=== PATIENT | male | born 1950 | race Caucasian/White ===

== ENCOUNTER 2021-07-09 11:54 | Inpatient (IN) ==
[2021-07-09] MEDS ORDERED: POTASSIUM CHLORIDE RIDER 10 MEQ/100 ML PREMIX IV PRN (12:20)
[2021-07-09] MEDS ORDERED: diphenhydrAMINE CAP 50 MG CAPSULE PO ONE (12:20)
[2021-07-09] MEDS ORDERED: DIAZEPAM 5 MG TABLET PO ONE (12:20)
[2021-07-09] MEDS ORDERED: ASPIRIN 325 MG TABLET PO ONE (12:20)
[2021-07-09] MEDS ORDERED: MAGNESIUM SULF RIDER 2 GM/50 ML PREMIX IV PRN (12:20)
[2021-07-09 12:32] LABS: Basophils % 0.7 % (0.0-0.8); Eosinophils # 0.3 10*3/uL (0.0-0.87); Eosinophils % 4.9 % (0.00-10.9); Hematocrit 41.2 VOL% (42.0-52.0); Immature Granulocytes % 0.3 %; Immature Granulocytes Absolute 0.02 #; Lymphocytes # 1.2 10*3/uL (1.4-4.0); Lymphocytes % 21.3 % (21.2-54.2); Mean Corpuscular Volume 94.3 FL (87-102); Mean Platelet Volume 9.6 FL (9.6-12.0); Monocytes % 7.8 % (1.7-12.7); Platelet Count 158 T/CUMM (130-400); Red Blood Count 4.37 MC/CUMM (3.8-5.5); Red Cell Distribution Width 13.5 % (9.3-17.3); White Blood Count 5.8 T/CUMM (4-12)
[2021-07-09 12:42] LABS: PT Patient Result 10.9 SECS (10.5-12.0)
[2021-07-09 12:56] LABS: Calcium 8.8 MG/DL (8.5-10.1); Osmolality,Calculated 277.7 MOS/KG (273-304); Potassium 3.5 MMOL/L (3.5-5.1)
[2021-07-09] MEDS ORDERED: HEPARIN/NACL 0.9% 2 UNITS/ML 2,000 UNIT/1,000 ML BAG IV ONE (13:02)
[2021-07-09] MEDS ORDERED: MAGNESIUM SULF RIDER 2 GM/50 ML PREMIX IV ONE (13:03)
[2021-07-09] MEDS ORDERED: DIAZEPAM 5 MG TABLET ONE (13:03)
[2021-07-09] MEDS ORDERED: ASPIRIN 325 MG TABLET ONE (13:03)
[2021-07-09] MEDS ORDERED: diphenhydrAMINE CAP 50 MG CAPSULE ONE (13:03)
[2021-07-09] MEDS: SODIUM CHLORIDE 0.9% 1,000 ML IV SCH (13:05)
[2021-07-09] MEDS ORDERED: fentaNYL 100 MCG/2 ML VIAL ONE (13:23)
[2021-07-09] MEDS ORDERED: MIDAZOLAM 2 MG/2 ML VIAL ONE (13:23)
[2021-07-09] MEDS ORDERED: LIDOCAINE 1% 20 ML VIAL ONE (13:26)
[2021-07-09] MEDS ORDERED: NITROGLYCERIN DRIP 50 MG/250 ML BOTTLE IV ONE (13:53)
[2021-07-09] MEDS ORDERED: GLUCAGON 1 MG VIAL IM PRN (14:26)
[2021-07-09] MEDS ORDERED: DEXTROSE 50% 25 GM/50 ML VIAL IV PRN (14:26)
[2021-07-09] MEDS ORDERED: ACETAMINOPHEN 325 MG TABLET PO PRN (14:29)
[2021-07-09] MEDS ORDERED: MORPHINE 2 MG/1 ML SYRINGE IV PRN (14:29)
[2021-07-09] MEDS ORDERED: ONDANSETRON 4 MG/2 ML VIAL IV PRN (14:29)
[2021-07-09] MEDS ORDERED: ZALEPLON 5 MG CAPSULE PO PRN (14:29)
[2021-07-09] MEDS ORDERED: ACETAMINOPHEN/CODEINE 300-30 MG TABLET PO PRN (14:29)
[2021-07-09] MEDS: INSULIN REGULAR 100 UNIT/ML SUBCUT SCH (15:42)
[2021-07-09] MEDS: PANTOPRAZOLE 40 MG TABLET PO SCH (21:40)
[2021-07-09] MEDS: OMEGA 3 ACID ETHYL ESTERS 1 GM CAPSULE PO SCH (21:40)
[2021-07-09] MEDS: MELOXICAM 7.5 MG TABLET PO SCH (21:40)
[2021-07-09] MEDS: NEBIVOLOL 5 MG TABLET PO SCH (21:40)
[2021-07-09] MEDS: EZETIMIBE 10 MG TABLET PO SCH (21:41)
[2021-07-09] MEDS: CHOLECALCIFEROL 1,000 UNIT TABLET PO SCH (21:41)
[2021-07-09] MEDS: ZINC GLUCONATE 50 MG TABLET PO SCH (21:42)
[2021-07-10] MEDS: diphenhydrAMINE 25 MG/10 ML UDCUP PO SCH ×2 (00:05→21:52)
[2021-07-10 05:10] LABS: Basophils % 0.5 % (0.0-0.8); Eosinophils # 0.2 10*3/uL (0.0-0.87); Hematocrit 38.7 VOL% (42.0-52.0); Hemoglobin 13.1 GM/DL (14.0-18.0); Immature Granulocytes % 0.7 %; Immature Granulocytes Absolute 0.04 #; Lymphocytes % 17.7 % (21.2-54.2); Mean Corpuscular HGB Conc 33.9 GM/DL (32-36); Mean Corpuscular Volume 94.4 FL (87-102); Mean Platelet Volume 9.7 FL (9.6-12.0); Monocytes % 9.5 % (1.7-12.7); Neutrophils % 67.6 % (38.7-73.9); Platelet Count 141 T/CUMM (130-400); Red Cell Distribution Width 13.4 % (9.3-17.3); White Blood Count 5.7 T/CUMM (4-12)
[2021-07-10 05:52] LABS: Calcium 8.3 MG/DL (8.5-10.1); Osmolality,Calculated 282.7 MOS/KG (273-304); Potassium 3.3 MMOL/L (3.5-5.1); Risk Ratio 7.77; VLDL Cholesterol 84.8 MG/DL
[2021-07-10] MEDS: SODIUM CHLORIDE 0.9% 1,000 ML IV SCH ×3 (06:10→18:09)
[2021-07-10] MEDS ORDERED: CYANOCOBALAMIN 5000 MCG PO SCH (09:00)
[2021-07-10] MEDS ORDERED: ENOXAPARIN 40 MG/0.4 ML SYRINGE SUBCUT SCH (09:00)
[2021-07-10] MEDS: INSULIN REGULAR 100 UNIT/ML SUBCUT SCH ×2 (09:14→16:30)
[2021-07-10] MEDS: OMEGA 3 ACID ETHYL ESTERS 1 GM CAPSULE PO SCH ×2 (09:21→21:53)
[2021-07-10] MEDS: hydroCHLOROthiazide 25 MG TABLET PO SCH (09:21)
[2021-07-10] MEDS: OLMESARTAN 20 MG TABLET PO SCH (09:21)
[2021-07-10] MEDS: amLODIPine 2.5 MG TABLET PO SCH (09:21)
[2021-07-10] MEDS: ASPIRIN EC 81 MG TABLET PO SCH (09:21)
[2021-07-10] MEDS: FUROSEMIDE 20 MG TABLET PO SCH (09:22)
[2021-07-10] MEDS: LEVOTHYROXINE 137 MCG TABLET PO SCH (09:22)
[2021-07-10] MEDS: CHOLECALCIFEROL 1,000 UNIT TABLET PO SCH ×2 (09:22→21:53)
[2021-07-10] MEDS ORDERED: POTASSIUM CHLORIDE 20 MEQ TABLET PO ONE (09:56)
[2021-07-10] MEDS ORDERED: CLORAZEPATE 3.75 MG TABLET PO PRN (11:10)
[2021-07-10] MEDS: NITROGLYCERIN 2% OINT 1 INCH/GM PACK TOP SCH ×2 (11:36→18:09)
[2021-07-10] MEDS: NEBIVOLOL 5 MG TABLET PO SCH (21:52)
[2021-07-10] MEDS: MELOXICAM 7.5 MG TABLET PO SCH (21:52)
[2021-07-10] MEDS: PANTOPRAZOLE 40 MG TABLET PO SCH (21:53)
[2021-07-10] MEDS: ZINC GLUCONATE 50 MG TABLET PO SCH (21:53)
[2021-07-10] MEDS: EZETIMIBE 10 MG TABLET PO SCH (21:53)
[2021-07-11] MEDS: NITROGLYCERIN 2% OINT 1 INCH/GM PACK TOP SCH ×5 (00:23→23:28)
[2021-07-11 04:24] LABS: ABG Base Excess 2.8 MMOL/L (-2.5-2.5); ABG HCO3 26.3 MMOL/L (20-26); ABG PCO2 46.5 MM HG (35-48); ABG PH 7.394 (7.35-7.45); ABG TCO2 25.1 MMOL/L (23-27)
[2021-07-11 04:42] LABS: ABG PO2 36.5 MM HG (80-95)
[2021-07-11 05:18] LABS: ABG Base Excess 1.7 MMOL/L (-2.5-2.5); ABG HCO3 25.9 MMOL/L (20-26); ABG Oxygen Saturation 95.8 % (95-100); ABG PCO2 39.7 MM HG (35-48); ABG PH 7.426 (7.35-7.45); ABG PO2 74.4 MM HG (80-95); ABG TCO2 22.8 MMOL/L (23-27)
[2021-07-11 05:21] LABS: Basophils % 0.5 % (0.0-0.8); Eosinophils # 0.2 10*3/uL (0.0-0.87); Eosinophils % 3.6 % (0.00-10.9); Hematocrit 37.4 VOL% (42.0-52.0); Hemoglobin 12.9 GM/DL (14.0-18.0); Immature Granulocytes % 0.5 %; Immature Granulocytes Absolute 0.03 #; Lymphocytes # 1.2 10*3/uL (1.4-4.0); Lymphocytes % 17.6 % (21.2-54.2); Mean Corpuscular HGB Conc 34.5 GM/DL (32-36); Mean Corpuscular Volume 94.7 FL (87-102); Monocytes % 9.1 % (1.7-12.7); Neutrophils % 68.7 % (38.7-73.9); Platelet Count 147 T/CUMM (130-400); Red Blood Count 3.95 MC/CUMM (3.8-5.5); Red Cell Distribution Width 13.5 % (9.3-17.3); White Blood Count 6.6 T/CUMM (4-12)
[2021-07-11 06:05] LABS: Albumin 3.3 G/DL (3.4-5.0); Bilirubin,Total 0.5 MG/DL (0.20-1.00); Calcium 8.4 MG/DL (8.5-10.1); Osmolality,Calculated 281.5 MOS/KG (273-304); Potassium 3.4 MMOL/L (3.5-5.1); Total Protein 6.2 G/DL (6.4-8.2)
[2021-07-11] MEDS: LEVOTHYROXINE 137 MCG TABLET PO SCH (06:17)
[2021-07-11] MEDS: SODIUM CHLORIDE 0.9% 1,000 ML IV SCH ×3 (06:29→17:00)
[2021-07-11] MEDS: ASPIRIN EC 81 MG TABLET PO SCH (08:55)
[2021-07-11] MEDS: CHLORHEXIDINE 0.12% ORAL RINSE 60 ML BOTTLE SWISH/SPIT SCH ×2 (08:55→20:58)
[2021-07-11] MEDS: amLODIPine 2.5 MG TABLET PO SCH (08:55)
[2021-07-11] MEDS: OLMESARTAN 20 MG TABLET PO SCH (08:56)
[2021-07-11] MEDS: CHLORHEXIDINE 4% SOLN 118 ML BOTTLE TOP SCH ×3 (08:56→20:58)
[2021-07-11] MEDS: CHOLECALCIFEROL 1,000 UNIT TABLET PO SCH ×2 (08:56→20:58)
[2021-07-11] MEDS: FUROSEMIDE 20 MG TABLET PO SCH (08:56)
[2021-07-11] MEDS: OMEGA 3 ACID ETHYL ESTERS 1 GM CAPSULE PO SCH ×2 (08:56→20:58)
[2021-07-11] MEDS: hydroCHLOROthiazide 25 MG TABLET PO SCH (08:56)
[2021-07-11] MEDS: ASCORBIC ACID 500 MG TABLET PO SCH (08:56)
[2021-07-11] MEDS ORDERED: POTASSIUM CHLORIDE 20 MEQ TABLET PO ONE (09:20)
[2021-07-11] MEDS: NITROGLYCERIN SL 0.4 MG TABLET SL PRN ×2 (09:39→12:11)
[2021-07-11] MEDS: CYANOCOBALAMIN 5000 MCG PO SCH (10:08)
[2021-07-11] MEDS: INSULIN REGULAR 100 UNIT/ML SUBCUT SCH ×2 (11:18→16:47)
[2021-07-11] MEDS: EZETIMIBE 10 MG TABLET PO SCH (20:57)
[2021-07-11] MEDS: MELOXICAM 7.5 MG TABLET PO SCH (20:57)
[2021-07-11] MEDS: PANTOPRAZOLE 40 MG TABLET PO SCH (20:57)
[2021-07-11] MEDS: diphenhydrAMINE 25 MG/10 ML UDCUP PO SCH (20:57)
[2021-07-11] MEDS: NEBIVOLOL 5 MG TABLET PO SCH (20:58)
[2021-07-11] MEDS: ZINC GLUCONATE 50 MG TABLET PO SCH (20:58)
[2021-07-12] MEDS: SODIUM CHLORIDE 0.9% 1,000 ML IV SCH ×3 (01:54→11:32)
[2021-07-12] MEDS ORDERED: CEFUROXIME INJ 1,500 MG in SODIUM CHLORIDE 0.9% 100 ML IV ONE (05:00)
[2021-07-12 05:54] LABS: Basophils # 0.1 10*3/uL (0.0-0.2); Basophils % 0.7 % (0.0-0.8); Eosinophils # 0.3 10*3/uL (0.0-0.87); Eosinophils % 4.3 % (0.00-10.9); Hematocrit 40.8 VOL% (42.0-52.0); Immature Granulocytes % 0.6 %; Immature Granulocytes Absolute 0.04 #; Lymphocytes # 1.3 10*3/uL (1.4-4.0); Lymphocytes % 19.6 % (21.2-54.2); Mean Corpuscular HGB Conc 34.3 GM/DL (32-36); Mean Corpuscular Volume 94.7 FL (87-102); Mean Platelet Volume 9.9 FL (9.6-12.0); Monocytes % 8.6 % (1.7-12.7); Neutrophils % 66.2 % (38.7-73.9); Platelet Count 156 T/CUMM (130-400); Red Blood Count 4.31 MC/CUMM (3.8-5.5); Red Cell Distribution Width 13.2 % (9.3-17.3); White Blood Count 6.7 T/CUMM (4-12)
[2021-07-12] MEDS ORDERED: PAPAVERINE 60 MG/2 ML VIAL ONE (05:58)
[2021-07-12] MEDS ORDERED: VANCOMYCIN 500 MG VIAL ONE (05:59)
[2021-07-12] MEDS ORDERED: VANCOMYCIN 1,000 MG VIAL ONE (05:59)
[2021-07-12] MEDS ORDERED: DIAZEPAM 5 MG TABLET PO ONE (06:00)
[2021-07-12] MEDS ORDERED: FAMOTIDINE 20 MG TABLET PO ONE (06:00)
[2021-07-12] MEDS ORDERED: VECURONIUM 10 MG VIAL IV ONE ×4 (06:03→06:04)
[2021-07-12] MEDS ORDERED: AMINOCAPROIC ACID 5,000 MG/20 ML VIAL ONE ×4 (06:03)
[2021-07-12] MEDS ORDERED: CALCIUM CHLORIDE 1,000 MG/10 ML VIAL IV ONE (06:04)
[2021-07-12] MEDS ORDERED: LIDOCAINE 2% 5 ML VIAL ONE ×2 (06:04→10:18)
[2021-07-12] MEDS ORDERED: ETOMIDATE 40 MG/20 ML VIAL IV ONE (06:04)
[2021-07-12] MEDS ORDERED: SUFentanil 250 MCG/5 ML AMP ONE (06:05)
[2021-07-12] MEDS ORDERED: SODIUM CHLORIDE 0.9% 250 ML IV ONE (06:05)
[2021-07-12] MEDS ORDERED: MIDAZOLAM 10 MG/2 ML VIAL ONE (06:05)
[2021-07-12] MEDS ORDERED: LACTATED RINGERS 1,000 ML IV ONE (06:05)
[2021-07-12] MEDS ORDERED: PHENYLEPHRINE DRIP 0 MG/0 ML PREMIX IV ONE (06:05)
[2021-07-12] MEDS ORDERED: SODIUM CHLORIDE 0.9% 1,000 ML IV ONE (06:05)
[2021-07-12] MEDS ORDERED: PHENYLEPHRINE 1 MG/10 ML SYRINGE IV ONE (06:05)
[2021-07-12] MEDS ORDERED: ePHEDrine 50 MG/ML VIAL ONE (06:13)
[2021-07-12 06:46] LABS: Calcium 8.6 MG/DL (8.5-10.1); Osmolality,Calculated 279.7 MOS/KG (273-304); Potassium 3.9 MMOL/L (3.5-5.1)
[2021-07-12] MEDS ORDERED: POTASSIUM CHLORIDE RIDER 20 MEQ/100 ML PREMIX IV ONE (07:37)
[2021-07-12] MEDS ORDERED: NITROPRUSSIDE 50 MG/2 ML VIAL ONE (07:37)
[2021-07-12] MEDS ORDERED: SODIUM BICARBONATE 50 MEQ/50 ML VIAL IV ONE ×2 (07:37→10:19)
[2021-07-12] MEDS ORDERED: CALCIUM CHLORIDE 1,000 MG/10 ML SYRINGE IV ONE (07:38)
[2021-07-12] MEDS ORDERED: PHENYLEPHRINE DRIP 40 MG/250 ML PREMIX IV ONE (07:38)
[2021-07-12] MEDS ORDERED: MINERAL OIL/PETROLATUM OPH OINT 3.5 GM TUBE ONE (07:38)
[2021-07-12 07:39] LABS: ABG Base Excess 0.1 MMOL/L (-2.5-2.5); ABG HCO3 25.6 MMOL/L (20-26); ABG Oxygen Saturation 98.9 % (95-100); ABG PCO2 44.7 MM HG (35-48); ABG PH 7.376 (7.35-7.45); ABG PO2 197.9 MM HG (80-95); Glucose Heart Surgery 179 MG/DL (74-106); Hemoglobin Heart Surgery 13.4 G/DL (14.0-18.0); Ionized Calcium Arterial 1.09 MMOL/L (1.21-1.46); PCO2 Patient Temp Arterial 44.7 MMHG; PH Patient Temp Arterial 7.376; PO2 Patient Temp Arterial 197.9 MM HG; Patient Temperature 37 CELCIUS; Potassium Heart/CVR 3.7 MMOL/L (3.5-5.1); Sodium Heart/CVR 137 MMOL/L (135-145)
[2021-07-12 07:44] LABS: Bacteria,Urine Occasional /HPF (Few); Bilirubin,Urine Negative (Negative); Blood, Urine Negative (Negative); Glucose,Urine (UA) Negative (Negative); Ketones,Urine Negative (Negative); Mucus,Urine Occasional /LPF (Occasional); Nitrite,Urine Negative (Negative); Protein,Urine Negative; RBC,Urine <1 /HPF (0-4); Squamous Epithelial Cell,Urine Occasional /HPF (0-10); Urine Appearance CLEAR (Clear); Urine Color Yellow (Yellow); Urine Urobilinogen < 2.0 EU/DL (0.2-1.0)
[2021-07-12] MEDS ORDERED: NITROGLYCERIN DRIP 50 MG/250 ML BOTTLE IV ONE ×2 (08:44→10:27)
[2021-07-12 09:15] LABS: Hematocrit Heart Surgery 29.4 PERCENT (42-52); Hemoglobin Heart Surgery 9.5 G/DL (14.0-18.0); PCO2 Patient Temp Venous 36.9 MM HG; PH Patient Temp Venous 7.435; PO2 Patient Temp Venous 34.6 MM HG; Potassium Heart/CVR 4.1 MMOL/L (3.5-5.1); VBG Base Excess 0.8 MEQ/L (0-4); VBG HCO3 24.9 MEQ/L (24-28); VBG Oxygen Saturation 78.1 %; VBG PCO2 42.7 MMHG (41-51); VBG PH 7.391; VBG PO2 42.6 MMHG (17-40); VBG Total CO2 23.8 MMOL/L
[2021-07-12] MEDS ORDERED: MIDAZOLAM 2 MG/2 ML VIAL ONE (09:39)
[2021-07-12 09:47] LABS: Hematocrit Heart Surgery 31.6 PERCENT (42-52); Hemoglobin Heart Surgery 10.2 G/DL (14.0-18.0); PCO2 Patient Temp Venous 39.2 MM HG; PH Patient Temp Venous 7.405; PO2 Patient Temp Venous 36.6 MM HG; Potassium Heart/CVR 4.2 MMOL/L (3.5-5.1); VBG HCO3 24.1 MEQ/L (24-28); VBG Oxygen Saturation 76.4 %; VBG PCO2 43.2 MMHG (41-51); VBG PH 7.376; VBG PO2 42.1 MMHG (17-40); VBG Total CO2 23.1 MMOL/L
[2021-07-12] MEDS: LEVOTHYROXINE 137 MCG TABLET PO SCH (10:12)
[2021-07-12] MEDS: INSULIN REGULAR 100 UNIT/ML SUBCUT SCH (10:12)
[2021-07-12] MEDS: NITROGLYCERIN 2% OINT 1 INCH/GM PACK TOP SCH (10:12)
[2021-07-12 10:13] LABS: ABG Base Excess -0.2 MMOL/L (-2.5-2.5); ABG HCO3 24.3 MMOL/L (20-26); ABG PCO2 37.9 MM HG (35-48); ABG PH 7.412 (7.35-7.45); ABG PO2 96.1 MM HG (80-95); ABG TCO2 21.8 MMOL/L (23-27); Glucose Heart Surgery 301 MG/DL (74-106); Hematocrit Heart Surgery 32.3 PERCENT (42-52); Hemoglobin Heart Surgery 10.5 G/DL (14.0-18.0); Ionized Calcium Arterial 1.09 MMOL/L (1.21-1.46); PCO2 Patient Temp Arterial 37.9 MMHG; PH Patient Temp Arterial 7.412; PO2 Patient Temp Arterial 96.1 MM HG; Patient Temperature 37 CELCIUS; Potassium Heart/CVR 3.8 MMOL/L (3.5-5.1); Sodium Heart/CVR 135 MMOL/L (135-145)
[2021-07-12] MEDS: hydroCHLOROthiazide 25 MG TABLET PO SCH (10:13)
[2021-07-12] MEDS: OLMESARTAN 20 MG TABLET PO SCH (10:13)
[2021-07-12] MEDS: ASCORBIC ACID 500 MG TABLET PO SCH (10:13)
[2021-07-12] MEDS: OMEGA 3 ACID ETHYL ESTERS 1 GM CAPSULE PO SCH (10:13)
[2021-07-12] MEDS: CHLORHEXIDINE 0.12% ORAL RINSE 60 ML BOTTLE SWISH/SPIT SCH ×2 (10:13→21:22)
[2021-07-12] MEDS: ASPIRIN EC 81 MG TABLET PO SCH (10:13)
[2021-07-12] MEDS: FUROSEMIDE 20 MG TABLET PO SCH (10:13)
[2021-07-12] MEDS: amLODIPine 2.5 MG TABLET PO SCH (10:13)
[2021-07-12] MEDS: CHOLECALCIFEROL 1,000 UNIT TABLET PO SCH (10:13)
[2021-07-12] MEDS: CYANOCOBALAMIN 5000 MCG PO SCH (10:13)
[2021-07-12] MEDS ORDERED: DEXTROSE 5% KCL 20 MEQ 20 MEQ/1,000 ML BAG IV ONE (10:18)
[2021-07-12] MEDS ORDERED: PROTAMINE SULFATE 250 MG/25 ML VIAL IV ONE (10:18)
[2021-07-12] MEDS ORDERED: ALBUMIN 25% 25 GM/100 ML VIAL IV ONE (10:18)
[2021-07-12] MEDS ORDERED: methylPREDNISolone SOD SUC 1,000 MG/8 ML VIAL ONE (10:18)
[2021-07-12] MEDS ORDERED: MAGNESIUM SULFATE 5 GM/10 ML VIAL IV ONE (10:18)
[2021-07-12] MEDS ORDERED: MANNITOL 100 GM/500 ML BAG IV ONE (10:18)
[2021-07-12] MEDS ORDERED: PROTAMINE SULFATE 50 MG/5 ML VIAL IV ONE (10:19)
[2021-07-12] MEDS ORDERED: HEPARIN 10,000 UNIT/10 ML VIAL ONE (10:19)
[2021-07-12] MEDS ORDERED: FUROSEMIDE 20 MG/2 ML VIAL ONE (10:19)
[2021-07-12] MEDS ORDERED: SEVOFLURANE 1 UNIT/15 MINUTE INH ONE (10:33)
[2021-07-12] MEDS ORDERED: INSULIN REGULAR 100 UNIT/ML IV PRN (11:12)
[2021-07-12] MEDS ORDERED: MAGNESIUM SULF RIDER 2 GM/50 ML PREMIX IV PRN (11:12)
[2021-07-12] MEDS ORDERED: ONDANSETRON 4 MG/2 ML VIAL IV PRN (11:12)
[2021-07-12] MEDS ORDERED: PHENYLEPHRINE DRIP 40 MG/250 ML PREMIX IV PRN (11:12)
[2021-07-12] MEDS ORDERED: SODIUM CHLORIDE 0.45% 1,000 ML IV SCH ×2 (11:12)
[2021-07-12] MEDS ORDERED: NITROPRUSSIDE 100 MG in DEXTROSE 5% 250 ML IV PRN (11:12)
[2021-07-12] MEDS ORDERED: CALCIUM CHLORIDE 1,000 MG/10 ML SYRINGE IV PRN (11:12)
[2021-07-12] MEDS ORDERED: CHLORHEXIDINE 4% SOLN 118 ML BOTTLE TOP PRN (11:12)
[2021-07-12] MEDS ORDERED: MIDAZOLAM 10 MG/2 ML VIAL IV PRN (11:12)
[2021-07-12] MEDS ORDERED: INSULIN REGULAR 100 UNIT/ML IV ONE (11:12)
[2021-07-12] MEDS ORDERED: ACETAMINOPHEN 650 MG SUPP RECTAL PRN (11:12)
[2021-07-12] MEDS ORDERED: MAGNESIUM SULF RIDER 4 GM/100 ML PREMIX IV PRN (11:12)
[2021-07-12] MEDS ORDERED: ALBUMIN 5% 12.5 GM/250 ML VIAL IV PRN (11:12)
[2021-07-12] MEDS ORDERED: VECURONIUM 10 MG VIAL IV PRN ×2 (11:12)
[2021-07-12] MEDS ORDERED: DEXTROSE 50% 25 GM/50 ML VIAL IV PRN ×2 (11:12)
[2021-07-12] MEDS ORDERED: MIDAZOLAM 2 MG/2 ML VIAL IV PRN (11:12)
[2021-07-12 11:18] LABS: ABG Base Excess -0.3 MMOL/L (-2.5-2.5); ABG HCO3 24.1 MMOL/L (20-26); ABG Oxygen Saturation 96.5 % (95-100); ABG PCO2 44.8 MM HG (35-48); ABG PH 7.361 (7.35-7.45); ABG PO2 84.6 MM HG (80-95); ABG TCO2 22.8 MMOL/L (23-27); Glucose Heart Surgery 272 MG/DL (74-106); Hematocrit Heart Surgery 34.7 PERCENT (42-52); Hemoglobin Heart Surgery 11.3 G/DL (14.0-18.0); Potassium Heart/CVR 3.8 MMOL/L (3.5-5.1)
[2021-07-12] MEDS ORDERED: NITROGLYCERIN DRIP 50 MG/250 ML BOTTLE IV PRN (11:28)
[2021-07-12] MEDS: INSULIN REGULAR DRIP 100 ML IV SCH ×2 (11:39→23:07)
[2021-07-12 11:47] LABS: Basophils % 0.3 % (0.0-0.8); Eosinophils # 0.1 10*3/uL (0.0-0.87); Eosinophils % 1.4 % (0.00-10.9); Hematocrit 32.4 VOL% (42.0-52.0); Hemoglobin 11.1 GM/DL (14.0-18.0); Immature Granulocytes % 0.8 %; Immature Granulocytes Absolute 0.06 #; Lymphocytes % 12.4 % (21.2-54.2); Mean Corpuscular HGB Conc 34.3 GM/DL (32-36); Mean Corpuscular Volume 94.2 FL (87-102); Monocytes % 3.9 % (1.7-12.7); Neutrophils % 81.2 % (38.7-73.9); Platelet Count 156 T/CUMM (130-400); Red Blood Count 3.44 MC/CUMM (3.8-5.5); Red Cell Distribution Width 13.3 % (9.3-17.3)
[2021-07-12 11:52] LABS: CKMB % 4.5 %
[2021-07-12 11:53] LABS: High Sensitive Troponin I* 765.5 ng/L (0-78)
[2021-07-12 11:57] LABS: ABG Base Excess -0.3 MMOL/L (-2.5-2.5); ABG HCO3 24.1 MMOL/L (20-26); ABG Oxygen Saturation 96.3 % (95-100); ABG PO2 82.3 MM HG (80-95); ABG TCO2 22.1 MMOL/L (23-27); Glucose Heart Surgery 263 MG/DL (74-106); Hematocrit Heart Surgery 36.5 PERCENT (42-52); Hemoglobin Heart Surgery 11.8 G/DL (14.0-18.0); Potassium Heart/CVR 3.8 MMOL/L (3.5-5.1)
[2021-07-12 12:20] LABS: Albumin 3.3 G/DL (3.4-5.0); Calcium 8.6 MG/DL (8.5-10.1); Osmolality,Calculated 285.5 MOS/KG (273-304); Potassium 3.9 MMOL/L (3.5-5.1); Total Protein 5.6 G/DL (6.4-8.2)
[2021-07-12] MEDS: POTASSIUM CHLORIDE RIDER 20 MEQ/100 ML PREMIX IV PRN ×5 (12:25→17:46)
[2021-07-12 12:35] LABS: Band Neutrophils 5 % (0-10); Eosinophils 3 % (0-10); Lymphocytes 9 % (20-55); Segmented Neutrophils 78 % (50-85); Total Cells Counted 100
[2021-07-12 12:39] LABS: Anisocytosis Slight; Macrocytosis Slight
[2021-07-12 12:40] LABS: Spherocytes Few
[2021-07-12 12:41] LABS: Reactive Lymphocytes Slight
[2021-07-12 13:04] LABS: ABG Base Excess -0.9 MMOL/L (-2.5-2.5); ABG HCO3 23.6 MMOL/L (20-26); ABG Oxygen Saturation 97.3 % (95-100); ABG PCO2 42.3 MM HG (35-48); ABG PH 7.369 (7.35-7.45); ABG PO2 92.4 MM HG (80-95); ABG TCO2 21.9 MMOL/L (23-27); Glucose Heart Surgery 235 MG/DL (74-106); Hematocrit Heart Surgery 34.8 PERCENT (42-52); Hemoglobin Heart Surgery 11.3 G/DL (14.0-18.0); Potassium Heart/CVR 3.6 MMOL/L (3.5-5.1)
[2021-07-12] MEDS: LACTATED RINGERS 250 ML IV PRN ×2 (13:16→13:44)
[2021-07-12] MEDS: MORPHINE 10 MG/1 ML VIAL IV PRN ×3 (13:32→18:50)
[2021-07-12 13:47] LABS: PT Patient Result 11.6 SECS (10.5-12.0); Partial Thromboplastin Time 24.7 SECS (23.9-33.8)
[2021-07-12] MEDS: FUROSEMIDE 40 MG/4 ML VIAL IV PRN (14:28)
[2021-07-12 14:54] LABS: ABG HCO3 23.6 MMOL/L (20-26); ABG Oxygen Saturation 98.1 % (95-100); ABG PCO2 39.4 MM HG (35-48); ABG PH 7.389 (7.35-7.45); ABG TCO2 21.2 MMOL/L (23-27); Glucose Heart Surgery 191 MG/DL (74-106); Hemoglobin Heart Surgery 11.7 G/DL (14.0-18.0); Potassium Heart/CVR 3.6 MMOL/L (3.5-5.1)
[2021-07-12 16:48] LABS: ABG HCO3 23.5 MMOL/L (20-26); ABG Oxygen Saturation 96.4 % (95-100); ABG PH 7.392 (7.35-7.45); ABG PO2 80.8 MM HG (80-95); ABG TCO2 21.2 MMOL/L (23-27); Glucose Heart Surgery 185 MG/DL (74-106); Hematocrit Heart Surgery 34.5 PERCENT (42-52); Hemoglobin Heart Surgery 11.2 G/DL (14.0-18.0); Potassium Heart/CVR 3.7 MMOL/L (3.5-5.1)
[2021-07-12] MEDS: POTASSIUM CHLORIDE RIDER 10 MEQ/100 ML PREMIX IV PRN ×2 (16:56→21:17)
[2021-07-12] MEDS: CEFUROXIME INJ 1,500 MG in SODIUM CHLORIDE 0.9% 100 ML IV SCH (17:46)
[2021-07-12 20:04] LABS: ABG Base Excess -1.8 MMOL/L (-2.5-2.5); ABG HCO3 22.9 MMOL/L (20-26); ABG PCO2 36.6 MM HG (35-48); ABG PH 7.399 (7.35-7.45); ABG PO2 67.4 MM HG (80-95); ABG TCO2 20.2 MMOL/L (23-27); Glucose Heart Surgery 218 MG/DL (74-106); Hemoglobin Heart Surgery 11.3 G/DL (14.0-18.0); Potassium Heart/CVR 4.1 MMOL/L (3.5-5.1)
[2021-07-12] MEDS ORDERED: HYDROmorphone 2 MG/1 ML VIAL IV PRN ×2 (20:27→20:30)
[2021-07-12 20:28] LABS: CKMB % 3.8 %
[2021-07-12] MEDS: KETOROLAC 30 MG/1 ML VIAL IV SCH (21:22)
[2021-07-13] MEDS: FUROSEMIDE 40 MG/4 ML VIAL IV PRN (01:27)
[2021-07-13] MEDS: POTASSIUM CHLORIDE RIDER 20 MEQ/100 ML PREMIX IV PRN ×2 (01:48→02:56)
[2021-07-13 02:48] LABS: ABG Base Excess -0.4 MMOL/L (-2.5-2.5); ABG PCO2 37.2 MM HG (35-48); ABG PH 7.414 (7.35-7.45); ABG PO2 69.8 MM HG (80-95); ABG TCO2 21.3 MMOL/L (23-27); Glucose Heart Surgery 146 MG/DL (74-106); Hematocrit Heart Surgery 34.4 PERCENT (42-52); Hemoglobin Heart Surgery 11.1 G/DL (14.0-18.0); Potassium Heart/CVR 4.3 MMOL/L (3.5-5.1)
[2021-07-13 02:59] LABS: Basophils % 0.1 % (0.0-0.8); Eosinophils % 0.1 % (0.00-10.9); Immature Granulocytes % 0.6 %; Immature Granulocytes Absolute 0.08 #; Lymphocytes # 0.6 10*3/uL (1.4-4.0); Lymphocytes % 4.1 % (21.2-54.2); Mean Corpuscular HGB Conc 34.4 GM/DL (32-36); Mean Corpuscular Volume 93.8 FL (87-102); Mean Platelet Volume 10.2 FL (9.6-12.0); Monocytes % 4.4 % (1.7-12.7); Neutrophils % 90.7 % (38.7-73.9); Platelet Count 162 T/CUMM (130-400); Red Blood Count 3.41 MC/CUMM (3.8-5.5); Red Cell Distribution Width 13.5 % (9.3-17.3)
[2021-07-13] MEDS: KETOROLAC 30 MG/1 ML VIAL IV SCH ×4 (02:59→20:22)
[2021-07-13 03:21] LABS: Band Neutrophils 1 % (0-10); Hypochromasia 1+; Lymphocytes 8 % (20-55); Microcytosis 1+; Platelet Estimate Adequate; Segmented Neutrophils 88 % (50-85); Total Cells Counted 100
[2021-07-13 03:22] LABS: CKMB % 2.8 %; High Sensitive Troponin I* 1080.2 ng/L (0-78)
[2021-07-13 03:24] LABS: Albumin 3.4 G/DL (3.4-5.0); Bilirubin,Direct 0.12 MG/DL (0.0-0.20); Bilirubin,Total 0.6 MG/DL (0.20-1.00); Calcium 8.3 MG/DL (8.5-10.1); Osmolality,Calculated 280.5 MOS/KG (273-304); Potassium 4.3 MMOL/L (3.5-5.1)
[2021-07-13] MEDS: CEFUROXIME INJ 1,500 MG in SODIUM CHLORIDE 0.9% 100 ML IV SCH ×2 (07:02→17:50)
[2021-07-13] MEDS: INSULIN REGULAR 100 UNIT/ML SUBCUT SCH ×4 (08:20→21:12)
[2021-07-13] MEDS: CHLORHEXIDINE 0.12% ORAL RINSE 60 ML BOTTLE SWISH/SPIT SCH ×3 (08:22→20:20)
[2021-07-13] MEDS ORDERED: GLUCAGON 1 MG VIAL IM PRN (10:08)
[2021-07-13] MEDS ORDERED: MAGNESIUM HYDROXIDE SUSP 30 ML UDCUP PO PRN (10:08)
[2021-07-13] MEDS ORDERED: ACETAMINOPHEN 325 MG TABLET PO PRN (10:08)
[2021-07-13] MEDS ORDERED: SODIUM CHLOR 0.45% KCL 20 MEQ 20 MEQ/1,000 ML BAG IV SCH (10:08)
[2021-07-13] MEDS ORDERED: ALUMINUM/MAGNES/SIMETH MAX STR 30 ML UDCUP PO PRN (10:08)
[2021-07-13] MEDS ORDERED: oxyCODONE/ACETAMINOPHEN 5-325 MG TABLET PO PRN (10:08)
[2021-07-13] MEDS ORDERED: ZALEPLON 5 MG CAPSULE PO PRN (10:08)
[2021-07-13] MEDS ORDERED: MAGNESIUM SULF RIDER 4 GM/100 ML PREMIX IV PRN (10:08)
[2021-07-13] MEDS ORDERED: DEXTROSE 50% 25 GM/50 ML VIAL IV PRN (10:08)
[2021-07-13] MEDS ORDERED: ONDANSETRON 4 MG/2 ML VIAL IV PRN (10:08)
[2021-07-13] MEDS ORDERED: MAGNESIUM SULF RIDER 2 GM/50 ML PREMIX IV PRN (10:08)
[2021-07-13] MEDS ORDERED: POTASSIUM CHLORIDE 20 MEQ TABLET PO PRN (10:08)
[2021-07-13] MEDS: FERROUS SULFATE 325 MG TABLET PO SCH (11:44)
[2021-07-13] MEDS: PANTOPRAZOLE 40 MG TABLET PO SCH (11:44)
[2021-07-13] MEDS: DOCUSATE SODIUM 100 MG CAPSULE PO SCH (11:44)
[2021-07-13] MEDS: ASPIRIN EC 325 MG TABLET PO SCH (11:44)
[2021-07-13] MEDS: oxyCODONE/ACETAMINOPHEN 5-325 MG TABLET PO PRN (11:45)
[2021-07-13 11:55] LABS: CKMB % 1.9 %; High Sensitive Troponin I* 1127.9 ng/L (0-78)
[2021-07-13] MEDS: ASCORBIC ACID 500 MG TABLET PO SCH (20:16)
[2021-07-13] MEDS: NEBIVOLOL 5 MG TABLET PO SCH (20:16)
[2021-07-13] MEDS: CHOLECALCIFEROL 1,000 UNIT TABLET PO SCH (20:16)
[2021-07-13] MEDS: EZETIMIBE 10 MG TABLET PO SCH (20:16)
[2021-07-14] MEDS: INSULIN REGULAR 100 UNIT/ML SUBCUT SCH ×6 (00:23→20:14)
[2021-07-14] MEDS: KETOROLAC 30 MG/1 ML VIAL IV SCH ×4 (02:47→20:18)
[2021-07-14] MEDS: oxyCODONE/ACETAMINOPHEN 5-325 MG TABLET PO PRN ×2 (02:48→21:34)
[2021-07-14 05:02] LABS: Basophils % 0.1 % (0.0-0.8); Eosinophils % 0.1 % (0.00-10.9); Hematocrit 34.2 VOL% (42.0-52.0); Hemoglobin 11.4 GM/DL (14.0-18.0); Immature Granulocytes % 0.5 %; Immature Granulocytes Absolute 0.07 #; Lymphocytes # 0.6 10*3/uL (1.4-4.0); Lymphocytes % 4.4 % (21.2-54.2); Mean Corpuscular HGB Conc 33.3 GM/DL (32-36); Mean Corpuscular Volume 96.9 FL (87-102); Mean Platelet Volume 10.4 FL (9.6-12.0); Monocytes % 8.5 % (1.7-12.7); Neutrophils % 86.4 % (38.7-73.9); Platelet Count 166 T/CUMM (130-400); Red Blood Count 3.53 MC/CUMM (3.8-5.5); Red Cell Distribution Width 14.1 % (9.3-17.3); White Blood Count 14.2 T/CUMM (4-12)
[2021-07-14 05:24] LABS: Bilirubin,Direct 0.16 MG/DL (0.0-0.20); Bilirubin,Total 0.5 MG/DL (0.20-1.00); Calcium 7.9 MG/DL (8.5-10.1); Osmolality,Calculated 288.4 MOS/KG (273-304); Potassium 4.5 MMOL/L (3.5-5.1); Total Protein 6.1 G/DL (6.4-8.2)
[2021-07-14 05:29] LABS: Alanine Aminotransferase 29 U/L (16-61); Albumin 2.9 G/DL (3.4-5.0); Alkaline Phosphatase 51 U/L (45-117); Aspartate Amino Transferase 22 U/L (0-37); Bilirubin,Indirect 1.5 MG/DL (0.0-1.0); Total Protein 6.1 G/DL (6.4-8.2)
[2021-07-14 05:36] LABS: Eosinophils 1 % (0-10); Lymphocytes 5 % (20-55); Microcytosis 1+; Platelet Estimate Adequate; Segmented Neutrophils 85 % (50-85); Total Cells Counted 100
[2021-07-14] MEDS ORDERED: FUROSEMIDE 40 MG/4 ML VIAL IV ONE (06:00)
[2021-07-14] MEDS: LEVOTHYROXINE 137 MCG TABLET PO SCH (06:19)
[2021-07-14] MEDS: ASCORBIC ACID 500 MG TABLET PO SCH ×2 (09:50→20:14)
[2021-07-14] MEDS: CHOLECALCIFEROL 1,000 UNIT TABLET PO SCH ×2 (09:50→20:14)
[2021-07-14] MEDS: ASPIRIN EC 325 MG TABLET PO SCH (09:50)
[2021-07-14] MEDS: DOCUSATE SODIUM 100 MG CAPSULE PO SCH (09:50)
[2021-07-14] MEDS: FERROUS SULFATE 325 MG TABLET PO SCH (09:51)
[2021-07-14] MEDS: PANTOPRAZOLE 40 MG TABLET PO SCH (09:51)
[2021-07-14] MEDS: FUROSEMIDE 20 MG TABLET PO SCH (09:51)
[2021-07-14] MEDS: CHLORHEXIDINE 0.12% ORAL RINSE 60 ML BOTTLE SWISH/SPIT SCH ×2 (09:51→20:14)
[2021-07-14] MEDS: POLYETHYLENE GLYCOL POWDER 17 GM PACK PO SCH (09:59)
[2021-07-14] MEDS: NEBIVOLOL 5 MG TABLET PO SCH (20:14)
[2021-07-14] MEDS: EZETIMIBE 10 MG TABLET PO SCH (20:14)
[2021-07-15] MEDS: INSULIN REGULAR 100 UNIT/ML SUBCUT SCH ×7 (00:36→23:40)
[2021-07-15] MEDS: KETOROLAC 30 MG/1 ML VIAL IV SCH ×4 (03:43→20:45)
[2021-07-15] MEDS: LEVOTHYROXINE 137 MCG TABLET PO SCH (05:43)
[2021-07-15 06:24] LABS: Basophils % 0.1 % (0.0-0.8); Eosinophils # 0.2 10*3/uL (0.0-0.87); Eosinophils % 2.4 % (0.00-10.9); Hemoglobin 10.6 GM/DL (14.0-18.0); Immature Granulocytes % 0.8 %; Immature Granulocytes Absolute 0.07 #; Lymphocytes % 11.6 % (21.2-54.2); Mean Corpuscular HGB Conc 32.1 GM/DL (32-36); Mean Corpuscular Volume 98.8 FL (87-102); Mean Platelet Volume 10.2 FL (9.6-12.0); Monocytes % 10.4 % (1.7-12.7); Neutrophils % 74.7 % (38.7-73.9); Platelet Count 154 T/CUMM (130-400); Red Blood Count 3.34 MC/CUMM (3.8-5.5); Red Cell Distribution Width 14.3 % (9.3-17.3); White Blood Count 8.9 T/CUMM (4-12)
[2021-07-15 07:08] LABS: Albumin 2.8 G/DL (3.4-5.0); Bilirubin,Direct 0.11 MG/DL (0.0-0.20); Bilirubin,Total 0.5 MG/DL (0.20-1.00); Calcium 7.7 MG/DL (8.5-10.1); Osmolality,Calculated 285.4 MOS/KG (273-304); Potassium 4.1 MMOL/L (3.5-5.1); Total Protein 5.9 G/DL (6.4-8.2)
[2021-07-15 07:10] LABS: Alanine Aminotransferase 31 U/L (16-61); Albumin 2.6 G/DL (3.4-5.0); Alkaline Phosphatase 48 U/L (45-117); Aspartate Amino Transferase 18 U/L (0-37); Bilirubin,Indirect 0.6 MG/DL (0.0-1.0); Total Protein 5.9 G/DL (6.4-8.2)
[2021-07-15] MEDS: POLYETHYLENE GLYCOL POWDER 17 GM PACK PO SCH (08:55)
[2021-07-15] MEDS: PANTOPRAZOLE 40 MG TABLET PO SCH (08:56)
[2021-07-15] MEDS: CHOLECALCIFEROL 1,000 UNIT TABLET PO SCH ×2 (08:56→20:41)
[2021-07-15] MEDS: metFORMIN 500 MG TABLET PO SCH ×2 (08:56→17:25)
[2021-07-15] MEDS: FUROSEMIDE 20 MG TABLET PO SCH (08:57)
[2021-07-15] MEDS: ASCORBIC ACID 500 MG TABLET PO SCH ×2 (08:57→20:41)
[2021-07-15] MEDS: ASPIRIN EC 325 MG TABLET PO SCH (08:57)
[2021-07-15] MEDS: FERROUS SULFATE 325 MG TABLET PO SCH (08:57)
[2021-07-15] MEDS: DOCUSATE SODIUM 100 MG CAPSULE PO SCH (08:57)
[2021-07-15] MEDS ORDERED: NON-FORMULARY MEDICATION (Metformin 1,000 mg Tablet) PO SCH (09:00)
[2021-07-15] MEDS: CHLORHEXIDINE 0.12% ORAL RINSE 60 ML BOTTLE SWISH/SPIT SCH ×2 (10:07→20:42)
[2021-07-15] MEDS: EZETIMIBE 10 MG TABLET PO SCH (20:41)
[2021-07-15] MEDS: oxyCODONE/ACETAMINOPHEN 5-325 MG TABLET PO PRN (20:42)
[2021-07-15] MEDS: NEBIVOLOL 5 MG TABLET PO SCH (20:42)
[2021-07-16] MEDS: KETOROLAC 30 MG/1 ML VIAL IV SCH ×4 (03:27→20:24)
[2021-07-16] MEDS: INSULIN REGULAR 100 UNIT/ML SUBCUT SCH ×5 (04:17→20:38)
[2021-07-16] MEDS: LEVOTHYROXINE 137 MCG TABLET PO SCH (05:56)
[2021-07-16 06:16] LABS: Basophils % 0.3 % (0.0-0.8); Eosinophils # 0.4 10*3/uL (0.0-0.87); Hematocrit 33.9 VOL% (42.0-52.0); Immature Granulocytes % 1.1 %; Immature Granulocytes Absolute 0.07 #; Lymphocytes # 1.2 10*3/uL (1.4-4.0); Lymphocytes % 17.7 % (21.2-54.2); Mean Corpuscular HGB Conc 32.4 GM/DL (32-36); Mean Corpuscular Volume 98.5 FL (87-102); Mean Platelet Volume 9.9 FL (9.6-12.0); Monocytes % 8.8 % (1.7-12.7); Neutrophils % 66.1 % (38.7-73.9); Platelet Count 162 T/CUMM (130-400); Red Blood Count 3.44 MC/CUMM (3.8-5.5); Red Cell Distribution Width 13.9 % (9.3-17.3); White Blood Count 6.5 T/CUMM (4-12)
[2021-07-16 06:42] LABS: Albumin 2.6 G/DL (3.4-5.0); Bilirubin,Total 0.7 MG/DL (0.20-1.00); Calcium 7.9 MG/DL (8.5-10.1); Osmolality,Calculated 285.3 MOS/KG (273-304); Potassium 4.2 MMOL/L (3.5-5.1); Total Protein 5.7 G/DL (6.4-8.2)
[2021-07-16] MEDS ORDERED: OLMESARTAN 5 MG TABLET PO SCH (09:00)
[2021-07-16] MEDS: FUROSEMIDE 20 MG TABLET PO SCH (09:39)
[2021-07-16] MEDS: metFORMIN 500 MG TABLET PO SCH ×2 (09:39→17:30)
[2021-07-16] MEDS: ASPIRIN EC 325 MG TABLET PO SCH (09:39)
[2021-07-16] MEDS: ASCORBIC ACID 500 MG TABLET PO SCH ×2 (09:39→20:21)
[2021-07-16] MEDS: PANTOPRAZOLE 40 MG TABLET PO SCH (09:40)
[2021-07-16] MEDS: DOCUSATE SODIUM 100 MG CAPSULE PO SCH (09:40)
[2021-07-16] MEDS: FERROUS SULFATE 325 MG TABLET PO SCH (09:40)
[2021-07-16] MEDS: POLYETHYLENE GLYCOL POWDER 17 GM PACK PO SCH (09:40)
[2021-07-16] MEDS: CHOLECALCIFEROL 1,000 UNIT TABLET PO SCH ×2 (09:40→20:22)
[2021-07-16] MEDS: CHLORHEXIDINE 0.12% ORAL RINSE 60 ML BOTTLE SWISH/SPIT SCH ×2 (09:41→20:25)
[2021-07-16] MEDS: EZETIMIBE 10 MG TABLET PO SCH (20:21)
[2021-07-16] MEDS: oxyCODONE/ACETAMINOPHEN 5-325 MG TABLET PO PRN (20:22)
[2021-07-16] MEDS: NEBIVOLOL 5 MG TABLET PO SCH (20:22)
[2021-07-17] MEDS: INSULIN REGULAR 100 UNIT/ML SUBCUT SCH ×4 (00:15→14:13)
[2021-07-17] MEDS: KETOROLAC 30 MG/1 ML VIAL IV SCH ×2 (03:59→09:35)
[2021-07-17 05:50] LABS: Basophils % 0.3 % (0.0-0.8); Eosinophils # 0.4 10*3/uL (0.0-0.87); Eosinophils % 5.6 % (0.00-10.9); Hematocrit 33.4 VOL% (42.0-52.0); Immature Granulocytes % 1.1 %; Immature Granulocytes Absolute 0.07 #; Lymphocytes # 1.2 10*3/uL (1.4-4.0); Lymphocytes % 18.8 % (21.2-54.2); Mean Corpuscular HGB Conc 32.9 GM/DL (32-36); Mean Corpuscular Volume 96.5 FL (87-102); Mean Platelet Volume 9.6 FL (9.6-12.0); Monocytes % 8.8 % (1.7-12.7); Neutrophils % 65.4 % (38.7-73.9); Platelet Count 171 T/CUMM (130-400); Red Blood Count 3.46 MC/CUMM (3.8-5.5); Red Cell Distribution Width 13.5 % (9.3-17.3); White Blood Count 6.2 T/CUMM (4-12)
[2021-07-17] MEDS: LEVOTHYROXINE 137 MCG TABLET PO SCH (06:04)
[2021-07-17 06:23] LABS: Alanine Aminotransferase 31 U/L (16-61); Albumin 2.5 G/DL (3.4-5.0); Alkaline Phosphatase 58 U/L (45-117); Aspartate Amino Transferase 14 U/L (0-37); Bilirubin,Indirect 0.3 MG/DL (0.0-1.0); Blood Urea Nitrogen 19 MG/DL (7-18); Calcium 8.1 MG/DL (8.5-10.1); Carbon Dioxide 26 MMOL/L (21-32); Estimated Glom Filtration Rate 146 ML/MIN; Glucose 132 MG/DL (74-106); Osmolality,Calculated 282.4 MOS/KG (273-304); Potassium 4.1 MMOL/L (3.5-5.1); Sodium 140 MMOL/L (136-145); Total Protein 5.7 G/DL (6.4-8.2)
[2021-07-17] MEDS ORDERED: metFORMIN 850 MG TABLET PO SCH (08:00)
[2021-07-17] MEDS ORDERED: OLMESARTAN 20 MG TABLET PO SCH ×2 (09:00)
[2021-07-17] MEDS: FERROUS SULFATE 325 MG TABLET PO SCH (09:16)
[2021-07-17] MEDS: POLYETHYLENE GLYCOL POWDER 17 GM PACK PO SCH (09:31)
[2021-07-17] MEDS: CHOLECALCIFEROL 1,000 UNIT TABLET PO SCH (09:33)
[2021-07-17] MEDS: ASPIRIN EC 325 MG TABLET PO SCH (09:33)
[2021-07-17] MEDS: PANTOPRAZOLE 40 MG TABLET PO SCH (09:34)
[2021-07-17] MEDS: DOCUSATE SODIUM 100 MG CAPSULE PO SCH (09:34)
[2021-07-17] MEDS: FUROSEMIDE 20 MG TABLET PO SCH (09:34)
[2021-07-17] MEDS: ASCORBIC ACID 500 MG TABLET PO SCH (09:34)
[2021-07-17] MEDS: CHLORHEXIDINE 0.12% ORAL RINSE 60 ML BOTTLE SWISH/SPIT SCH (09:41)
[2021-07-17 11:47] VITALS: BP 171/85
[2021-07-17] MEDS: oxyCODONE/ACETAMINOPHEN 5-325 MG TABLET PO PRN (14:05)
== END 2021-07-17 14:48 | disposition home health service (06) | DRG 234 ==
LOC: N.CL 11:54 → N.TELEN 14:26 → N.CVR 07-12 10:30 → N.TELES 07-13 09:44
PROVIDERS: ADMIT Internal Medicine Cardiovascular Disease